=== PATIENT | female | born 1955 | race Caucasian/White ===

== ENCOUNTER 2025-03-04 11:39 | Outpatient (CLI) | payer BC, MEDICARE ==
[~2025-03-04 11:39] MED LIST: Iopamidol 370 76% 100 ML VIAL ONE
== END 2025-03-04 11:40 | disposition home or self-care (01) ==
LOC: CSHCT 11:39
PROVIDERS: ATTEND Student in an Organized Health Care Education/Training Program
DX: Z86.711 Personal history of pulmonary embolism (principal); K44.9 Diaphragmatic hernia without obstruction or gangrene
CPT/HCPCS: 71275; Q9967